=== PATIENT | female | born 1995 | race African-American/Black ===

== ENCOUNTER 2016-12-20 21:58 | Emergency (ER) | payer OTHER ==
[~2016-12-20] VITALS: Ht 160 cm; Wt 101.6 kg
[2016-12-20 22:55] VITALS: BP 123/80
== END 2016-12-21 03:49 | disposition home or self-care (01) ==
LOC: ER 22:10
DX: T25.122A Burn of first degree of left foot, initial encounter (principal); X14.1XXA Other contact with hot air and other hot gases, initial encounter; Y93.89 Activity, other specified; Y99.8 Other external cause status; Y92.69 Other specified industrial and construction area as the place of occurrence of the external cause